=== PATIENT | male | born 1970 | race Caucasian/White ===

== ENCOUNTER 2018-09-24 12:35 | Emergency (ER) | payer OTHER ==
[2018-09-24 13:02] VITALS: BP 121/81; PULSE 73; TEMP 99; BMI 24.3
[2018-09-24] MEDS ORDERED: clonazePAM 0.5 MG TABLET PO ONE (13:08)
[2018-09-24] MEDS ORDERED: SODIUM CHLORIDE 0.9% 1000 ML INFUS.BAG IV ONE (13:09)
--- NOTE | 2018-09-24 13:19 | PDOC ---
History of Present Illness - General Chief Complaint: Lightheaded Stated Complaint: DIZZY, Time Seen by Provider: 09/24/18 13:08 - History of Present Illness Initial Comments: 09/24/18 13:50 Chief complaint: Lightheadedness History of present illness: 47 years old with past medical history significant for anxiety and depression presents to the emergency department with concern for carbon monoxide poisoning Patient states that he was at his apartment up until approximately 24 hours ago moved a carbon monoxide detector from one room to the other work began to warm. He endorses lightheadedness and some tingling to the right side of his face cough and mild chest discomfort with cough His symptoms wax and wane are mild to moderate in severity with no clear exacerbating or alleviating factors Past History - Past Medical History Allergies/Adverse Reactions: Allergies Allergy/AdvReac Type Severity Reaction Status Date / Time No Known Allergies Allergy Verified 11/11/14 11:09 Home Medications: Ambulatory Orders Sertraline HCl [Zoloft] 100 mg PO DAILY 09/24/18 clonazePAM [Klonopin -] 0.5 mg PO BID 1 Days #2 tablet MDD 1 09/24/18 COPD: No Psychiatric Problems: Yes (ANXIETY) - Suicide/Smoking/Psychosocial Hx Smoking History: Never smoked Have you smoked in the past 12 months: No Information on smoking cessation initiated: No Hx Alcohol Use: No Drug/Substance Use Hx: No Substance Use Type: None Review of Systems - Review of Systems Comments:: 09/24/18 13:50 ROS: A complete review of 10 out of 10 review of systems is taken and is negative apart from what is previously mentioned below and in the HPI. *Physical Exam - Vital Signs Last Vital Signs Temp Pulse Resp BP Pulse Ox 99 F 73 20 121/81 100 09/24/18 12:36 09/24/18 12:36 09/24/18 12:36 09/24/18 12:36 09/24/18 12:36 - Physical Exam Comments: 09/24/18 13:53 Vitals: Triage Vital signs reviewed General Appearance: no acute distress, well nourished well developed, Head: Atraumatic, Eyes: Pupils equal reactive round, extraocular movement intact Neck: Supple;No Nucal rigidity Chest Wall: Nontender Cardiac: Regular rate and rhythym, no murmurs, no rubs, no gallops, Lungs: Clear to auscultation bilateral, good air movement bilaterally, Abdomen: Soft, non distended, normal bowel sounds, non tender to palpation Extremities: Full range of motion to all extremities, no cyanosis, clubbing, or edema Skin: Warm and dry, no rashes or lesions, no rash, no petechiae Neuro: AOX3; Cranial Nerves 2-12 grossly intact, Strength intact to all extremities, Sensation intact to all extremities,gait normal Psych: normal mood, normal affect Moderate Sedation - Procedure Monitoring Vital Signs: Procedure Monitoring Vital Signs Temperature 99 F 09/24/18 12:36 Pulse Rate 73 09/24/18 12:36 Respiratory Rate 20 09/24/18 12:36 Blood Pressure 121/81 09/24/18 12:36 O2 Sat by Pulse Oximetry (%) 100 09/24/18 12:36 Heart Score/ECG Review - ECG Impressions Comment:: 09/24/18 13:54 EKG performed at 1325 demonstrates normal sinus rhythm incomplete right bundle- branch block no ST elevations or T-wave inversions. Interpreted by me ED Treatment Course - LABORATORY CBC & Chemistry Diagram: 09/24/18 13:17 09/24/18 13:17 Medical Decision Making - Medical Decision Making 09/24/18 18:50 47 years old with past medical history significant for anxiety depression presents to the ED with multitude of symptoms patient became very concerned given the variety of symptoms and that his carbon monoxide detector had beeped His laboratory analysis and emergency Department was unremarkable his EKG is unremarkable and his carbon monoxide level on ABG was undetectable Patient very anxious here in the emergency department one dose clonazepam given greater than 20 minutes but at bedside discussing the importance of follow-up Patient recently lost his mother and father over the past year and has been under a tremendous amount of stress since then he does not have a active psychiatrist but his primary care provider has been prescribing him antidepressants and clonazepam which she has run out of I advised patient to follow up with his primary care provider this week as well as use his insurance to help find a psychiatrist. I also provided the patient with the psychiatric phone numbers for both [facility] and [facility] I will provide the patient with prescription for 2 pills of clonazepam for today and tomorrow he was instructed to follow up with his doctor he denied any suicidal ideation homicidal ideation or auditory or visual hallucinations the majority symptomatology appears to be related to stress and anxiety Findings, the need for follow-up, strict return instructions discussed with patient. *DC/Admit/Observation/Transfer Diagnosis at time of Disposition: Lightheaded - Discharge Dispostion Disposition: HOME Condition at time of disposition: Improved Decision to Admit order: No - Prescriptions Prescriptions: clonazePAM [Klonopin -] 0.5 mg PO BID 1 Days #2 tablet MDD 1 - Referrals - Patient Instructions Additional Instructions: Drink plenty of fluids. Take all home medications as prescribed. Follow-up with your doctor in 1-2 days. Return to the emergency department for any severe worsening symptoms or for any concerns. Please follow up with a psychiatrist in you insurance plan or call Department of Psychiatry and Behavioral Sciences [facility] [address] [address] or [facility] [address] [place] [address] - Post Discharge Activity
[2018-09-24] MEDS ORDERED: clonazePAM 0.5 MG TABLET ONE (13:29)
[2018-09-24 13:46] LABS: BASO % 1.2 % (0-2.0); EOS % 0.2 % (0-4.5); HEMATOCRIT 43.7 % (35.4-49); HEMOGLOBIN 14.6 GM/dl (11.7-16.9); LYMPH % 16.7 % (8-40); MCH 32.6 pg (25.7-33.7); MCHC 33.5 g/dl (32.0-35.9); MEAN CELL VOLUME 97.4 fl (80-96); MEAN PLT VOLUME 8.9 fl (7.5-11.1); MONO % 7.5 % (3.8-10.2); NEUT % 74.4 % (42.8-82.8); PLATELET COUNT 305 K/MM3 (134-434); RBC 4.49 M/mm3 (4.00-5.60); RDW 12.9 % (11.9-15.9); WHITE BLOOD COUNT 8.4 K/mm3 (4.0-10.8)
[2018-09-24 14:01] LABS: ALBUMIN 3.8 g/dl (3.5-5.0); ALK PHOS 53 U/L (32-92); ANION GAP 8 MMOL/L (8-16); BLOOD UREA NITROGEN 16 mg/dl (7-18); CALCIUM 9.1 mg/dl (8.4-10.2); CHLORIDE 103 mmol/L (98-107); CO2 25 mmol/L (22-28); CREATININE 0.7 mg/dl (0.6-1.3); GLUCOSE,RANDOM 95 mg/dl (74-106); POTASSIUM 3.5 mmol/L (3.5-5.1); SGOT/AST 23 U/L (10-42); SGPT/ALT 16 U/L (10-40); SODIUM 136 mmol/L (136-145)
[2018-09-24 14:06] LABS: ARTERIAL BLD GAS O2 SATURATION 99.4 % (90-98.9); ARTERIAL BLOOD GAS PCO2 24.3 mmHg (35-45); ARTERIAL BLOOD GAS pH 7.55 (7.35-7.45)
[2018-09-24 14:12] LABS: ALLENS TEST POSITIVE
--- NOTE | 2018-09-25 16:58 | EKG ---
Test Reason : Blood Pressure : / mmHG Vent. Rate : 064 BPM Atrial Rate : 064 BPM P-R Int : 148 ms QRS Dur : 108 ms QT Int : 416 ms P-R-T Axes : 062 031 034 degrees QTc Int : 429 ms NORMAL SINUS RHYTHM INCOMPLETE RIGHT BUNDLE BRANCH BLOCK BORDERLINE ECG NO PREVIOUS ECGS AVAILABLE Confirmed by MD GIOVANNY, CECILY ([id number]) on 09/25/2018 4:57:49 PM Referred By: PAUL RESTREPO Confirmed By:CECILY BALTAZAR MD
== END 2018-09-24 15:40 | disposition home or self-care (01) ==
LOC: FER 12:35
PROC: 3E0337Z Introduction of Electrolytic and Water Balance Substance into Peripheral Vein, Percutaneous Approach (ICD-10-PCS; principal; 2018-09-24)
DX: Z77.128 Contact with and (suspected) exposure to other hazards in the physical environment (principal); F41.8 Other specified anxiety disorders
CPT/HCPCS: 36415; 36600; 80053; 82375; 82803; 83050; 84484; 85025; 93005; 99282-25; J7030